=== PATIENT | male | born 1960 | race Caucasian/White ===

== ENCOUNTER → 2018-09-24 | Outpatient (CLI) | payer BC ==
[~2018-09-24] MED LIST: AMBIEN 10MG10 MG PO; CATAPRES 0.1MG0.1 MG PO; COREG 25MG25 MG/TAB PO; MULTI VITAMINS1 TAB PO; SLOW FE142 MG PO; TRICOR145 MG PO; VITAMINC1000TA PO
== END ==
LOC: COL.RAD 08:20
DX: R94.5 Abnormal results of liver function studies (principal); R91.8 Other nonspecific abnormal finding of lung field
CPT/HCPCS: Q9967

== ENCOUNTER → 2018-09-30 | Outpatient (CLI) | payer BC ==
[2018-09-30] VITALS (10 sets, daily range): BP systolic 114–134; BP diastolic 64–83; PULSE 88–100
[~2018-09-30] VITALS: Ht 182.9 cm; Wt 93.8 kg
[~2018-09-30] MED LIST changes: +MOTRIN 600600 MG/TAB PO; +NORCO 325 MG-51 TAB PO; +Work Release
[2018-09-30 13:33] LABS: INR 1.5 (0.8-3.0); PROTHROMBIN TIME 17.3 SECONDS (9.7-12.8)
--- NOTE | 2018-09-30 14:00 | NUR ---
PT BROUGHT INTO ROOM IN WHEELCHAIR. PT GOT ON THE TABLE, MONITORING EQUIPMENT PLACED ON PT.
--- NOTE | 2018-09-30 14:05 | NUR ---
TIME OUT DOEN WITH STAFF. VERSED 1 MG AND FENTAYNL 50 MCG GIVEN FOR ANXIETY REQUESTED BY PT.
--- NOTE | 2018-09-30 14:15 | NUR ---
SPECIMENS OBTAINED. PT DID WELL. PROCEDURE COMEPLETED
== END ==
LOC: COL.RAD 12:51
PROVIDERS: Family Medicine
DX: C18.9 Malignant neoplasm of colon, unspecified (principal); C78.7 Secondary malignant neoplasm of liver and intrahepatic bile duct; C78.00 Secondary malignant neoplasm of unspecified lung
CPT/HCPCS: 32106

== ENCOUNTER 2018-10-07 06:46 | Day surgery (SDC) | payer BC ==
[~2018-10-07] VITALS: Ht 182.9 cm; Wt 96.6 kg
[~2018-10-07 06:46] MED LIST changes: -MOTRIN 600600 MG/TAB PO; -NORCO 325 MG-51 TAB PO; -Work Release
[2018-10-07 07:30] VITALS: BP 116/71; PULSE 80; TEMP 97.8
--- NOTE | 2018-10-07 07:47 | NUR ---
TO RM AT 0700-CALL LIGHT IN REACH DAUGHTER IN LAW AT BEDSIDE. JIM AT BEDSIDE.
[2018-10-07 09:51] VITALS: BP 111/64; PULSE 79; TEMP 97.7
--- NOTE | 2018-10-07 09:51 | NUR ---
TO RM 8 FROM O.R. ALERT ORIENTED X3, TALKING WITH DAUGHTER IN LAW AND STAFF RECEIVED WATER. FOX SET OVER INCISION SITE CLEAN DRY INTACT. DENIES PAIN OR DISCOMFORT AT THIS TIME.
[2018-10-07] MEDS ORDERED: NORCO 325 MG-51 TAB PO (10:04)
[2018-10-07 10:05] VITALS: BP 111/65; PULSE 79
[2018-10-07] MEDS ORDERED: MOTRIN 600600 MG/TAB PO (10:05)
--- NOTE | 2018-10-07 10:05 | NUR ---
MAXWELL WEBB AND
[2018-10-07] MEDS ORDERED: Work Release (10:06)
[2018-10-07 10:20] VITALS: BP 123/67; PULSE 81
--- NOTE | 2018-10-07 10:20 | NUR ---
ATE 100% AND TOLERATED WELL.
--- NOTE | 2018-10-07 10:35 | NUR ---
RECEIVED DISCHRGE INSTRUCTIONS AND VERBALIZED UNDERSTANDING DISCONTINUED IV AND INT- CATHETER INTACT
--- NOTE | 2018-10-07 10:50 | NUR ---
DISCHARGED PER WC BY NURSING STAFF TO PRIVATE CAR IN CARE OF DAUGHTER IN LAW.
== END 2018-10-07 11:00 | disposition home or self-care (01) ==
LOC: SDCO 06:46
DX: C18.9 Malignant neoplasm of colon, unspecified (principal); C80.1 Malignant (primary) neoplasm, unspecified; D63.8 Anemia in other chronic diseases classified elsewhere; C78.5 Secondary malignant neoplasm of large intestine and rectum; C78.7 Secondary malignant neoplasm of liver and intrahepatic bile duct; I10 Essential (primary) hypertension; Z79.899 Other long term (current) drug therapy; Z80.0 Family history of malignant neoplasm of digestive organs; Z87.891 Personal history of nicotine dependence; E78.5 Hyperlipidemia, unspecified
CPT/HCPCS: C1788; J0690; J1644; J2704; J7120

== ENCOUNTER 2018-12-22 11:02 | Inpatient (IN) | payer BC ==
[~2018-12-22] VITALS: Ht 182.9 cm; Wt 86.0 kg
[~2018-12-22 11:02] MED LIST changes: +MOTRIN 600600 MG/TAB PO; +NORCO 325 MG-51 TAB PO; +Work Release
[2018-12-22 12:08] LABS: COLLECTION METHOD CLEAN CATCH
[2018-12-22 12:15] LABS: MUCOUS Present /lpf; PH 8 (5-8); SQUAMOUS EPITHELIAL None Seen /hpf; URINE APPEARANCE Clear; URINE BACTERIA None Seen /hpf; URINE BILIRUBIN Negative (NEGATIVE); URINE BLOOD Negative (NEGATIVE); URINE COLOR Yellow; URINE GLUCOSE Negative (NEGATIVE); URINE KETONE Negative (NEGATIVE); URINE LEUKOCYTE ESTERASE Negative (NEGATIVE); URINE NITRATE Negative (NEGATIVE); URINE PROTEIN(semi-quant) Negative (NEGATIVE); URINE RBC 0-2 /hpf; URINE UROBILINOGEN Negative (NEGATIVE)
[2018-12-22 12:17] LABS: HEMOGLOBIN 11.1 g/dl (13.5-18.0); MEAN CELL VOLUME 83 fl (80.0-100.0); MEAN CORPUSCULAR HEMOGLOBIN 25 pg (27.0-31.0); MEAN CORPUSCULAR HGB CONC 30 g/dl (33.0-37.0); MEAN PLATELET VOLUME 8.4 fl (7.4-10.4); PLATELET COUNT 277 K/mm3 (130-400); REDCELL DISTRIBUTION WIDTH-CV 20.7 % (11.5-14.5)
[2018-12-22 12:20] LABS: HEMATOCRIT 36.7 % (42.0-52.0)
[2018-12-22 12:35] LABS: ANISOCYTOSIS 1+; LYMPHOCYTE 11 % (20.0-51.0); NEUTROPHILS 77 % (42.0-75.2); PLATELET ESTIMATE NORMAL (NORMAL)
[2018-12-22 13:25] LABS: BILIRUBIN,TOTAL 0.5 mg/dL (0.0-1.0); C-REACTIVE PROTEIN 1.6 mg/dL (0.0-0.9); CALCIUM 9.6 mg/dL (8.4-10.2); CREATININE, serum 0.93 (0.66-1.25); TOTAL PROTEIN 7.6 gm/dL (6.4-8.2)
--- NOTE | 2018-12-22 16:05 | NUR ---
Pt up to floor from ED. Pt alert and oriented and NS and flagyl running at arrival. Pt denies SOB, nausea, dizziness. Pt reports pain in abdomen and managed with morphine given downstairs. Pt IV patent and no redness or infiltration noted. Pt has call light in reach and denies needs. Assessmnet and meds reviewed and completed.
[2018-12-22 17:36] VITALS: BP 120/69; PULSE 74; TEMP 97.8
[2018-12-22 17:38] VITALS: BP 120/69; PULSE 76; TEMP 97.8
[2018-12-22] MEDS ORDERED: LEVAQUIN 5500 MG/TA1 PO (17:47)
--- NOTE | 2018-12-22 18:50 | NUR ---
Left message with Dr. Leon about pt consult.
--- NOTE | 2018-12-22 19:15 | NUR ---
Shift assessment complete. Pt resting in bed, awake, a&o, cooperative c cares. Pt c/o continued back pain, will give PRN Edgar c HS meds per request. Pt denies any other c/o. INT patent. Pt denies needs. Call light in reach, will monitor.
[2018-12-22 19:55] VITALS: BP 103/61; PULSE 78; TEMP 98.6
--- NOTE | 2018-12-22 20:50 | NUR ---
Shift assessment complete. Pt resting in bed, awake, a&o, cooperative c cares. Pt reports c/o pain to legs/arms, back, et abd; PRN Anderson admin per pt request. Pt denies any other c/o. IV patent. Pt denies further needs. Call light in reach, will monitor.
--- NOTE | 2018-12-22 20:50 | NUR ---
Shift assessment complete. Pt resting in bed, awake, a&o, cooperative c cares. Pt reports c/o pain to legs/arms, back, et abd; PRN Cable admin per pt request. Pt denies any other c/o. IV patent. Tele in place. Pt denies further needs. Call light in reach, will monitor.
[2018-12-23 00:18] VITALS: BP 100/59; PULSE 58; TEMP 98.3
[2018-12-23 03:45] VITALS: BP 107/61; PULSE 60; TEMP 97.8
--- NOTE | 2018-12-23 07:59 | NUR ---
Assessment completed, alert/oriented, vital signs stable, denies any pain or discomfort this morning and stated he is "feeling much better", abdomen is soft and non-tender, denies any nausea/vomitting, tolerating clear liquid diet well and is hoping to advance diet today/ I will discuss this with hospitalist during rou, he has been afebrile / WBC wnl and LA is now also wnl, lungs CTA/ no reps.difficulty noted, enouraged coughing/deep breathing while in hospital to avoid PNA as he is immunocompromised , heart RRR/ distal pusles are palapble, he is up abmulating independently and denies other needs at this time
[2018-12-23 08:10] VITALS: BP 117/71; PULSE 58; TEMP 97.5
[2018-12-23 08:53] LABS: MEAN CELL VOLUME 87 fl (80.0-100.0); MEAN CORPUSCULAR HGB CONC 29 g/dl (33.0-37.0); MEAN PLATELET VOLUME 8.5 fl (7.4-10.4); PLATELET COUNT 241 K/mm3 (130-400); RED BLOOD COUNT 3.77 M/mm3 (4.20-5.60); REDCELL DISTRIBUTION WIDTH-CV 21.2 % (11.5-14.5)
[2018-12-23 09:00] LABS: HEMATOCRIT 32.7 % (42.0-52.0); HEMOGLOBIN 9.6 g/dl (13.5-18.0); MEAN CORPUSCULAR HEMOGLOBIN 25 pg (27.0-31.0)
--- NOTE | 2018-12-23 09:01 | NUR ---
Initial visit; Patient thanked Wagon Driver for looking in on him and offering Spiritual Care. Patient states he has a support system in town and appears to be in good spirits at this time.
[2018-12-23 09:04] LABS: ALBUMIN 3.1 gm/dL (3.5-5.0); BILIRUBIN,TOTAL 0.4 mg/dL (0.0-1.0); CALCIUM 8.6 mg/dL (8.4-10.2); CREATININE, serum 0.91 (0.66-1.25); MAGNESIUM 1.9 mg/dL (1.6-2.3); PHOSPHOROUS 3.9 mg/dL (2.5-4.5); POTASSIUM 3.6 mmol/L (3.4-5.0); TOTAL PROTEIN 6.2 gm/dL (6.4-8.2)
--- NOTE | 2018-12-23 14:34 | NUR ---
SW met with patient to discuss discharge planning. Patient lives independently at home. Patient's PCP is Dr Vargas and he obtains prescriptions from [facility]. Patient does not use any DME or home health services. Patient reports he has a DPOA-HC and SW requested a copy from Dr Vargas's office. PAULO does not anticipate any discharge needs.
[2018-12-23 15:12] VITALS: BP 142/75; PULSE 63; TEMP 98.5
[2018-12-23 19:23] VITALS: BP 130/66; PULSE 65; TEMP 98.7
[2018-12-24 00:04] VITALS: BP 128/72; PULSE 66; TEMP 98.2
[2018-12-24 03:29] VITALS: BP 132/70; PULSE 59; TEMP 98.1
[2018-12-24 07:06] LABS: HEMOGLOBIN 10.7 g/dl (13.5-18.0); MEAN CELL VOLUME 85 fl (80.0-100.0); MEAN CORPUSCULAR HEMOGLOBIN 25 pg (27.0-31.0); MEAN CORPUSCULAR HGB CONC 30 g/dl (33.0-37.0); MEAN PLATELET VOLUME 8.7 fl (7.4-10.4); PLATELET COUNT 290 K/mm3 (130-400); RED BLOOD COUNT 4.23 M/mm3 (4.20-5.60); REDCELL DISTRIBUTION WIDTH-CV 21.2 % (11.5-14.5)
[2018-12-24 07:12] VITALS: BP 143/88; PULSE 68; TEMP 97.8
[2018-12-24 07:21] LABS: CALCIUM 9.1 mg/dL (8.4-10.2); CREATININE, serum 0.85 (0.66-1.25); POTASSIUM 3.6 mmol/L (3.4-5.0)
[2018-12-24 08:05] LABS: BAND 6 % (0-10); EOSINOPHIL 2 % (0-4); LYMPHOCYTE 36 % (20.0-51.0); METAMYELOCYTE 2 % (0-0); NEUTROPHILS 42 % (42.0-75.2); PLATELET ESTIMATE NORMAL (NORMAL)
[2018-12-24 08:06] LABS: ANISOCYTOSIS 2+; HYPOCHROMIA 2+; MICROCYTOSIS 1+; OVALOCYTES 1+
--- NOTE | 2018-12-24 09:55 | NUR ---
Assessment completed, alert/oriented, vital signs stable, denies pain or discomfort, abdomen is soft and BS+, tolerating PO intake well and advanced diet yesterday, he is still on IV ABX, he is feeling good and anxious to get discharged, heart RRR, lungs CTA/ no resp.difficulty, denies other needs at this time
[2018-12-24] MEDS ORDERED: LEVAQUIN 750MG750 M1 PO (11:05)
[2018-12-24] MEDS ORDERED: FLAGYL500 MG PO (11:05)
--- NOTE | 2018-12-24 12:00 | NUR ---
Discussed discharge orders with the patient, instructed to follow up as osmin, insturcted to finish course of ABX, scripts for FLagyl and Levaquin called in to pharmacy for him, instructed him to HOLD off on his Coreg for 2 more days and then resume as he was ahaving some low B/P while in hospital, IV removed and he is leaving with his brother, [employer]ER escorted him out the door
== END 2018-12-24 14:12 | disposition home or self-care (01) | DRG 872 ==
LOC: COL.ER 11:02 → MEDICAL 13:56
PROVIDERS: Family Medicine; Physician Assistant; ADMIT Family Medicine
DX: A41.9 Sepsis, unspecified organism (principal); C18.9 Malignant neoplasm of colon, unspecified; C78.7 Secondary malignant neoplasm of liver and intrahepatic bile duct; R65.20 Severe sepsis without septic shock; K52.9 Noninfective gastroenteritis and colitis, unspecified; R11.2 Nausea with vomiting, unspecified; I10 Essential (primary) hypertension; D53.9 Nutritional anemia, unspecified; Z92.21 Personal history of antineoplastic chemotherapy; Z87.891 Personal history of nicotine dependence; Z88.8 Allergy status to other drugs, medicaments and biological substances
CPT/HCPCS: 99222-AI; 99233-AI; 99239; J1650; J1956; J2270; J2543; J3370; J7030; J7050; Q9967

== ENCOUNTER 2020-07-08 15:38 | Emergency (ER) | payer BC ==
[~2020-07-08 15:38] MED LIST changes: +FLAGYL500 MG PO; +LEVAQUIN 5500 MG/TA1 PO; +LEVAQUIN 750MG750 M1 PO
[2020-07-08 16:10] LABS: HEMATOCRIT 39.3 % (42.0-52.0); HEMOGLOBIN 11.7 g/dl (13.5-18.0); MEAN CELL VOLUME 90 fl (80.0-100.0); MEAN CORPUSCULAR HEMOGLOBIN 27 pg (27.0-31.0); MEAN CORPUSCULAR HGB CONC 30 g/dl (33.0-37.0); MEAN PLATELET VOLUME 8.8 fl (7.4-10.4); PLATELET COUNT 246 K/mm3 (130-400); RED BLOOD COUNT 4.36 M/mm3 (4.20-5.60); REDCELL DISTRIBUTION WIDTH-CV 19.4 % (11.5-14.5)
[2020-07-08 16:19] VITALS: BP 78/52; PULSE 132
[2020-07-08 16:29] LABS: CREATININE, serum 1.6 (0.66-1.25); POTASSIUM 4.5 mmol/L (3.4-5.0); TOTAL PROTEIN 6.8 gm/dL (6.4-8.2)
[2020-07-08 16:32] LABS: BAND 2 % (0-10); HYPOCHROMIA 3+; LYMPHOCYTE 41 % (20.0-51.0); NEUTROPHILS 54 % (42.0-75.2); NUCLEATED RED BLOOD CELL 2 (0-6)
[2020-07-08 16:33] LABS: ANISOCYTOSIS 2+; OVALOCYTES 2+
[2020-07-08 16:34] LABS: SCHISTOCYTES 1+; SPHEROCYTE 1+
--- NOTE | 2020-07-08 16:46 | NUR ---
Initial visit; Division Director called back after leaving for the day. Patient intubated, undergoing life saving measures. Family coming from a distance. Patient not showing signs of recuperating. Division Director supporting nurses and let them know who the Division Director Staple Laster is so they can call her if needed when present Division Director leaves.
--- NOTE | 2020-07-08 17:34 | NUR ---
WAS CALLED TO ED TO ASSIST WITH A PATIENT THAT HAD GONE UNRESPONSIVE. HIS COLOR WAS PURPLE AND PT WAS NOT BREATHING. THE NURSE HAD BEGUN CPR. I TOOK OVER AIRWAY AND WE INTUBATED THE PT AT 1607. AFTER MULTIPLE ATTEMPTS AT REVIVING THE PATIENT, THE DR INSTRUCTED THE TEAM TO DISCONTINUE CPR.
[2020-07-09 08:31] LABS: PATHOLOGY DIFF REVIEW OK
== END 2020-07-08 20:07 | disposition expired ==
LOC: COL.ER 15:38
PROVIDERS: Emergency Medicine
DX: I46.9 Cardiac arrest, cause unspecified (principal); K52.9 Noninfective gastroenteritis and colitis, unspecified; C18.9 Malignant neoplasm of colon, unspecified; A41.9 Sepsis, unspecified organism; I10 Essential (primary) hypertension; Z87.891 Personal history of nicotine dependence; Z20.822 Contact with and (suspected) exposure to COVID-19